=== PATIENT | female | born 1965 | race Caucasian/White ===

== ENCOUNTER → 2019-05-16 | Outpatient (CLI) | payer MEDICARE, MEDICAID | LOC: FB.MH 08:00 | PROVIDERS: ATTEND Psychologist Clinical | DX: F41.1 Generalized anxiety disorder (principal); F32.0 Major depressive disorder, single episode, mild | CPT/HCPCS: 90834 ==

== ENCOUNTER → 2022-06-08 | Day surgery (SDC) | payer MEDICARE, MEDICAID ==
[~2022-06-08] MED LIST: Lactated Ringers 1,000 ML IV ONE; Midazolam 1 MG/ML 2 ML SDV IV ONE; Propofol 200 MG/20 ML SDV IV ONE; Sodium Chloride 0.9% 10 ML Syringe FLUSH PRN
[2022-06-08] MEDS: Lactated Ringers 1,000 ML IV SCH (09:04)
== END ==
LOC: FB.SDS 08:14
PROVIDERS: ATTEND Surgery
DX: Z12.11 Encounter for screening for malignant neoplasm of colon (principal); Z88.0 Allergy status to penicillin; Z88.1 Allergy status to other antibiotic agents; Z79.899 Other long term (current) drug therapy; Z98.890 Other specified postprocedural states
CPT/HCPCS: 00812; G0121; J2250; J2704; J7120